=== PATIENT | female | born 1990 | race African-American/Black ===

== ENCOUNTER 2016-11-25 05:55 | Emergency (ER) | payer OTHER ==
[~2016-11-25] VITALS: Ht 167.6 cm; Wt 67.6 kg
[~2016-11-25 05:55] MED LIST: ACETAMINOPHEN500 M3 ORAL; IBUPROFEN800 MG ORAL; NKM
[2016-11-25 06:05] VITALS: BP 120/74
--- NOTE | 2016-11-25 06:33 | Emergency Room Report ---
History of Present Illness General Chief Complaint: Abdominal Pain Source: Patient Present Illness HPI Patient presents with complaints of right suprapubic lower abdominal pain Patient reports that she's having the same pain as her ovarian cyst pain Patient reports that she's been dealing with this since 19. she has seen her primary physician and was given referral to shoe associate Patient reports that she has been seen by different shoe associate And has been told that she had to wait Pain is 7/10 At this time sharp Denies any vomiting or diarrhea denies any fevers or chills denies any dysuria frequency Allergies: Coded Allergies: No Known Allergies (Unverified , 07/20/16) Patient History Past Medical History: see triage record Pertinent Family History: none Last Menstrual Period: NOVEMBER 12 Now: No : 0 Reviewed Nursing Documentation: PMH: Agreed, PSxH: Agreed Review of Systems All Other Systems: negative except mentioned in HPI Physical Exam Vital Signs Date Time Temp Pulse Resp B/P Pulse Ox O2 Delivery O2 Flow Rate FiO2 11/25/16 06:01 97.9 75 18 120/74 98 Room Air Sp02 EP Interpretation: reviewed, normal General Appearance: no apparent distress Head: normocephalic, atraumatic Eyes: bilateral eye EOMI, bilateral eye PERRL ENT: hearing grossly normal, normal pharynx, TMs + canals normal, uvula midline Neck: full range of motion, supple, no meningismus, no bony tend Respiratory: lungs clear, normal breath sounds, no rhonchi, no respiratory distress, no retraction, no accessory muscle use Cardiovascular #1: normal peripheral pulses, regular rate, rhythm, no edema, no gallop, no JVD, no murmur Gastrointestinal: normal bowel sounds, soft, no mass, no organomegaly, non- distended, no guarding, no hernia, no pulsatile mass, no rebound, tenderness - There is no reproducible tenderness however the patient subjectively is pointing to the right suprapubic area, the right lower quadrant as noted remains soft and nontender Genitourinary: no CVA tenderness Musculoskeletal: normal inspection Neurologic: oriented x3, responsive, knitting tester III-XII nml as tested, motor strength/ tone normal, sensory intact Psychiatric: mood/affect normal Skin: normal color, no rash, warm/dry, palpation normal Lymphatic: normal inspection, no adenopathy Medical Decision Making Diagnostic Impression: Primary Impression: Ovarian cyst Additional Impressions: abdominal pain UTI (urinary tract infection) ER Course With the patient's history and examination, multiple differentials considered, including but not limited to , ectopic , ovarian torsion, gastritis, cholecystitis, pancreatitis, appendicitis Given the patient's previous history of ovarian cyst, torsion also considered Patient however essentially frustrated regarding her ovarian cyst. Examined evaluation does not appear to be in line with torsion Patient was treated for pain her Patient has had multiple episodes of acute exacerbation of pain which has been diagnosed with ovarian cyst in the past, there for further CT imaging an ultrasound imaging was not pursued. Patient does have a CT on file from July showing the ovarian cyst. Patient appears frustrated, I did bring mom to the bedside and explained that unfortunately to the emergency room with no further intervention that can be taken. Or is emergently warranted Patient has been working with primary physician for gynecology referral Labs Test 11/25/16 06:25 Urine Color Yellow Urine Appearance Clear Urine pH 5 (4.5-8.0) Urine Specific [place] 1.025 (1.005-1.035) Urine Protein Negative (NEGATIVE) Urine Glucose (UA) Negative (NEGATIVE) Urine Ketones 1+ (NEGATIVE) Urine Occult Blood 1+ (NEGATIVE) Urine Nitrite Negative (NEGATIVE) Urine Bilirubin Negative (NEGATIVE) Urine Urobilinogen Normal MG/DL (0.0-1.0) Urine Leukocyte Esterase 2+ (NEGATIVE) Urine RBC 2-4 /HPF (0 - 2) Urine WBC 5-10 /HPF (0 - 2) Urine Squamous Epithelial Cells Few /LPF (NONE/OCC) Urine Bacteria Few /HPF (NONE) Urine Mucus Few /LPF (NONE/OCC) Urine HCG, Qualitative Negative Last Vital Signs Date Time Temp Pulse Resp B/P Pulse Ox O2 Delivery O2 Flow Rate FiO2 11/25/16 06:01 97.9 75 18 120/74 98 Room Air Status: improved Disposition: HOME, SELF-CARE Condition: Improved Scripts Acetaminophen With Codeine (T#3) (TYLENOL #3 TAB*) Y Tab 1 TAB ORAL Q8H Y for For Pain, #10 TAB Prov: PRISCILA CLINE D.O. 11/25/16 Ibuprofen* (MOTRIN*) 600 Mg Tablet 600 MG ORAL Q8H Y for For Pain, #20 TAB 0 Refills Prov: PRISCILA CLINE D.O. 11/25/16 Nitrofurantoin Monohyd/M-Cryst* (MACROBID 100 MG*) 100 Mg Capsule 100 MG ORAL EVERY 12 HOURS for 5 Days, CAP Prov: PRISCILA CLINE D.O. 11/25/16 Patient Instructions: Ovarian Cyst, [id number], Abdominal Pain, Adult Additional Instructions: Patient is provided with the discharge instructions notified to follow up with primary doctor in the next 2-3 days otherwise return to the er with any worsening symptoms. Please note that this report is being documented using [employer] technology. This can lead to erroneous entry secondary to incorrect interpretation by the dictating instrument. PRISCILA CLINE D.O. Nov 25, 2016 06:33
[2016-11-25 06:43] LABS: APPEARANCE,URINE CLEAR; KETONES,URINE 1+ (NEGATIVE); LEUKOCYTE ESTERASE ,URINE 2+ (NEGATIVE); NITRITE,URINE NEGATIVE (NEGATIVE); PH,URINE 5 (4.5-8.0); PROTEIN,URINE NEGATIVE (NEGATIVE); UROBILINOGEN,URINE NORMAL MG/DL (0.0-1.0)
[2016-11-25] MEDS ORDERED: Ketorolac 60mg Inj IM ONE (06:45)
[2016-11-25] MEDS ORDERED: Norco 10mg/325mg tab ORAL ONE (06:45)
[2016-11-25 06:58] LABS: BACTERIA,URINE FEW /HPF; MUCUS,URINE FEW /LPF (NONE/OCC); SQUAMOUS EPITHELIAL CELL,UR FEW /LPF (NONE/OCC)
[2016-11-25] MEDS ORDERED: ACETAMINOPHEN-1 EAC1 ORAL (07:43)
[2016-11-25] MEDS ORDERED: IBUPROFEN600 MG ORAL (07:43)
[2016-11-25] MEDS ORDERED: NITROFURANTOIN100 M2 ORAL (07:43)
[2016-11-25 07:53] VITALS: BP 120/70
== END 2016-11-25 07:56 | disposition home or self-care (01) ==
LOC: EMR 06:56
DX: N83.209 Unspecified ovarian cyst, unspecified side (principal); N39.0 Urinary tract infection, site not specified
CPT/HCPCS: 81003; 81025; 96372; 99284